=== PATIENT | male | born 1955 | race Caucasian/White ===

== ENCOUNTER 2017-08-01 16:34 | Emergency (ER) | payer BC ==
[2017-08-01 18:48] VITALS: BP 131/71
--- NOTE | 2017-08-01 19:21 | UC ---
Respiratory Complaint HPI - HPI Summary HPI Summary: C/O cough with fever over the last 3-4 days. Has also had increasing back pain the last several weeks. ? due to new boots. Having cold chills. Back hurts worse with coughing. No SOB. Nasal congestion. No sinus pain. - History of Current Complaint Chief Complaint: UCGeneralIllness Stated Complaint: COUGH/LOW BACK PAIN Time Seen by Provider: 08/01/17 19:07 Hx Obtained From: Patient Onset/Duration: Sudden Onset, Lasting Days - 3, Still Present Severity Initially: Mild Severity Currently: Moderate Pain Intensity: 6 Character: Cough: Nonproductive - with some coughing fits Alleviating Factors: Nothing Associated Signs And Symptoms: Positive: Fever, Chills, URI, Nasal Congestion, Hoarseness. Negative: Dyspnea, Wheezing, Sinus Discomfort - Allergies/Home Medications Allergies/Adverse Reactions: Allergies Allergy/AdvReac Type Severity Reaction Status Date / Time No Known Allergies Allergy Verified 08/01/17 18:48 PMH/Surg Hx/FS Hx/Imm Hx Previously Healthy: Yes - Surgical History Surgical History: Yes Surgery Procedure, Year, and Place: [place] - Family History Known Family History: Positive: Hypertension, Diabetes Negative: Cardiac Disease - Social History Occupation: Employed Full-time Lives: With Family Alcohol Use: Rare Substance Use Type: None Smoking Status (MU): Never Smoked Tobacco Review of Systems Constitutional: Fever, Chills ENT: Sore Throat Respiratory: Cough Musculoskeletal: Arthralgia - low back pain. Worse with coughing. No weakness/ numbness. No bowel or bladder issues. Is Patient Immunocompromised?: No All Other Systems Reviewed And Are Negative: Yes Physical Exam Triage Information Reviewed: Yes Appearance: No Pain Distress, Well-Nourished, Ill-Appearing Vital Signs: Initial Vital Signs Temp 101.7 F 08/01/17 18:44 Pulse 81 08/01/17 18:44 Resp 14 08/01/17 18:44 BP 131/71 08/01/17 18:44 Pulse Ox 97 08/01/17 18:44 Vital Signs Reviewed: Yes Eyes: Positive: Conjunctiva Inflamed ENT: Positive: Pharynx normal, Nasal congestion, TMs normal Neck exam: Normal Respiratory: Positive: Wheezing - expiratory wheezing with coughing Cardiovascular Exam: Normal Abdominal Exam: Normal Musculoskeletal Exam: Normal Musculoskeletal: Positive: Other: - paraspinal muscular tenderness over the lumbar spine Neurological Exam: Normal Psychological Exam: Normal Skin Exam: Normal UC Diagnostic Evaluation - Laboratory O2 Sat by Pulse Oximetry: 97 Respiratory Course/Dx - Differential Dx/Diagnosis Differential Diagnosis/HQI/PQRI: Asthma, Influenza, Lower Resp Infection, Sinusitis Provider Diagnoses: Influenza type B. Acute bronchospasm. Low back pain Discharge - Discharge Plan Condition: Stable Disposition: HOME Prescriptions: Cyclobenzaprine TAB* [Flexeril 10 MG TAB*] 10 mg PO BID PRN #15 tab PRN Reason: Pain - Back Oseltamivir CAP* [Tamiflu CAP*] 75 mg PO BID #10 cap predniSONE TAB* [Deltasone TAB*] 20 mg PO DAILY #18 tab Patient Education Materials: Influenza (ED), Oseltamivir (By mouth), Bronchospasm (ED), Prednisone (By mouth), Cyclobenzaprine (By mouth) Referrals: No Primary Care Phys,NOPCP [Primary Care Provider] -
[2017-08-01] MEDS ORDERED: Oseltamivir CAP* 75 MG CAP PO ONE (19:31)
== END 2017-08-01 19:56 | disposition home or self-care (01) ==
LOC: UCCORT 16:34
DX: J10.1 Influenza due to other identified influenza virus with other respiratory manifestations (principal); J98.01 Acute bronchospasm; M54.5 Low back pain
CPT/HCPCS: 87502; 99212; A9270-GY; G0463